=== PATIENT | female | born 1965 | race Caucasian/White ===

== ENCOUNTER 2019-12-31 08:59 | Outpatient (REF) | payer OTHER, SELFPAY | END 2019-12-31 09:00 | disposition home or self-care (01) | LOC: HO.WFDLDS 08:59 | PROVIDERS: Visit Provider Internal Medicine | DX: Z20.828 Contact with and (suspected) exposure to other viral communicable diseases (principal) | CPT/HCPCS: C9803; U0003 ==

== ENCOUNTER 2020-11-08 11:09 | Outpatient (REF) | payer OTHER, SELFPAY | END 2020-11-08 11:10 | disposition home or self-care (01) | LOC: HO.10HDLNP 11:09 | PROVIDERS: Visit Provider Otolaryngology | DX: B37.0 Candidal stomatitis (principal) | CPT/HCPCS: 87071; 87102; 87205 ==